=== PATIENT | female | born 1935 | race Caucasian/White ===

== ENCOUNTER 2017-02-11 15:13 | Inpatient (IN) | payer OTHER ==
[~2017-02-11] VITALS: Ht 162.6 cm; Wt 68.1 kg
--- NOTE | 2017-02-11 16:54 | DIAGNOSTIC IMAGING REPORT ---
PROCEDURE: CT HEAD WITHOUT CONTRAST INDICATION: GLF - HIT HEAD TECHNIQUE: Axial CT images were acquired through the head. Coronal and sagittal reformations were created. COMPARISON: None. FINDINGS: There are two small areas of subarachnoid hemorrhage along the left interhemispheric fissure. One in the frontal lobe and one in the parietal lobe. There is also a a small hemorrhagic contusion in the left frontal lobe. This is less than 6-7 mm in diameter. Ventricles are normal in size, shape and position. There is no mass, mass effect or midline shift. The fernandez-white matter differentiation is normal. There is no edema. The calvarium is intact. The paranasal sinuses and mastoid air cells are normally aerated. The extracranial soft tissues and orbits are normal. IMPRESSION: 1. Small amount of interhemispheric subarachnoid hemorrhage. 2. Small left frontal hemorrhagic contusion. 3. Findings discussed with Dr. Gamboa at 04:[address] scans at this facility use dose modulation, iterative reconstruction, and/or weight-based dosing when appropriate to reduce radiation dose to as low as reasonably achievable.
--- NOTE | 2017-02-11 18:56 | ED NURSING NOTES ---
Clinical Report - Nurses [facility] [address] [place] [address] 02/11/2017 15:17 Patient: PERFECTO BERNARDO TRIAGE Triage time 1510. Acuity: LEVEL 4. Chief Complaint: FALL (Pt states she was walking her dogs and they tripped her, she fell and hit her head, possible LOC, AMS.). SEPSIS SCREEN: Sepsis Screen. Negative (no infection suspected/documented). SELINA COMA SCORE: [place] Coma Scale: 15- eyes open spontaneously (4); best verbal response- oriented x 4 (5); best motor response- obeys commands (6). --15:28 Hema Bah R.N. 15:10 02/11/17. BP: 145/75 (regular adult cuff) taken on the left arm, while lying. HR: 83. RR: 16. O2 saturation: 100% on room air. Temp: 98.4 F (oral). Pain level now: 0/10. --15:28 Hema Bah R.N. Weight: 68 kg stated. Height/Length: 64 inches Per Patient. BMI: 25.8. --15:27 Hema Bah R.N. Medications Glipizide Oral (Tablet 5 mg), 2x a day. --15:22 Hema Bah R.N. MetFORMIN HCl Oral 750, at bedtime. --15:22 Hema Bah R.N. Aspirin Oral 650mg, QD. --15:23 Hema Bah R.N. AmLODIPine Besylate Oral. --15:24 Hema Bah R.N. Candesartan Cilexetil Oral (Tablet 8 mg), QD. --15:25 Hema Bah R.N. Allergies No Known Drug Allergy. --15:22 Hema Bah R.N. History Historian: EMS and patient. Arrived (Medic 46). This occurred just prior to arrival. Treatment GLUCOSE AND SYRUP WEIGHER: (IV SL by medic). Trauma activation: Pre-hospital notification of patient arrival was received. SOCIAL HX: Former smoker, end date 1998 (cigarette). Alcohol use; consumes wine by the glass. (daily). No drug use. ABUSE ASSESSMENT: No report of abuse. --15:28 Hema Bah R.N. PROBLEMS: Hypertension. Diabetes Mellitus. --15:25 Hema Bah R.N. ADDITIONAL SURGERIES: no known surgeries. Assessment GENERAL / NEURO / PSYCH: Alert. Appears in no acute distress. The patient is disoriented (minimal memory loss initially, then improved). Patient appears calm and cooperative. RESPIRATORY: Respirations not labored. Chest nontender. Breath sounds within normal limits. CVS: Capillary refill less than 2 seconds. GI / : Abdomen soft and nontender. SKIN: Mucous membranes are pink. Skin is warm and dry. --15:28 Hema Bah R.N. Interventions To treatment room. --15:28 Hema Bah R.N. NURSING PROGRESS NOTES Reassurance given. Two patient identifiers checked. Call light placed in reach. Side rails up x 2. Bed placed in lowest position. Brakes of bed on. Patient ready for evaluation- chart flagged. ( Pt's is here now and is at the bedside). --15:33 Hema Bah R.N. ( BG 135). --15:47 Hema Bah R.N. 15:10 02/11/2017 Site #1 started prior to arrival by EMS via IV in the left wrist with an 22g angiocath. Saline lock flushed with 10 mL saline. --17:28 Hema Bah R.N. 17:20 02/11/2017 Site #2 started via IV in the right wrist with an 20g angiocath, with aseptic technique and good blood return; two attempts. Saline lock flushed with 10 mL saline. --17:29 Hema Bah R.N. 17:35 02/11/2017 Started bag #1 1000 mL IV Fluids IV NS (Saline); bolus of 500 mL over 30 minute(s) via site #2 via IV pump. Allergies verified and confirmed 5 rights. IV patency established. IV site checked: no pain, redness, or swelling. IV flushed thoroughly pre- and post-medication administration. --17:35 Hema Bah R.N. 15:45 02/11/17. BP: 136/76. HR: 85. RR: 16. O2 saturation: 99% on room air. Pain level now: 0/10. --17:37 Hema Bah R.N. 16:00 02/11/17. BP: 127/64. HR: 89. RR: 16. O2 saturation: 98% on room air. Pain level now: 0/10. --17:38 Hema Bah R.N. 17:15 02/11/17. BP: 149/72. HR: 89. RR: 16. O2 saturation: 100% on room air. Pain level now: 0/10. --17:38 Hema Bah R.N. ( No change, neuros intact, ambulates without ataxia.). --18:48 Hema Bah R.N. 18:00 02/11/17. BP: 142/75. HR: 88. RR: 16. O2 saturation: 100%. Pain level now: 0/10. --18:48 Hema Bah R.N. Care transferred and report given (Sharon, ALEXIS). --19:06 Hema Bah R.N. 18:05 02/11/2017 IV Fluids IV NS Discontinued: completed. Total amount infused: 500 mL. IV patency established. IV site checked: no pain, redness, or swelling. IV flushed thoroughly. --20:29 Jose Carlos Oconnell ( pt up to bedside potty, no complications, pt denies any needs at this time). --20:44 Anel Oconnell. Patient transported to CT by stretcher. --20:44 Anel Oconnell. Patient transported by stretcher. (back to room). --20:52 Jose Carlos Oconnell ( pt given a sandwich and milk at this time. family at bedside and updated on admission status). --21:14 Jose Carlos Oconnell 21:33 02/11/17. BP: 145/61. HR: 86. RR: 16. O2 saturation: 99%. Temp: deferred. Pain level now: 0/10. --21:36 TonyaB, R.N. DISPOSITION / DISCHARGE Admitted to Acute Care. Transported via wheelchair. Report was given to a nurse via a phone call. Report included patient's care, treatment, medications, reviewed medication reconcilliation, and condition (including any recent changes or anticipated changes). All questions were answered. Report was acknowledged and care was transferred. Patient's personal items; items were transported with the patient. --21:40 Jose Carlos Oconnell Departure time: 22:29. Transported via wheelchair by nurse. --22:30 Jose Carlos Oconnell 22:30 02/11/17. BP: 138/75. HR: 86. RR: 16. O2 saturation: 99%. Temp: deferred. Pain level now: 0/10. --22:30 Jose Carlos Oconnell Locked/Released at 02/11/2017 22:30 by Jose Carlos Oconnell
--- NOTE | 2017-02-11 18:56 | ED ORDER SUMMARY ---
..... Patient: PERFECTO BERNARDO OrderSheet [facility] VisitID: [id number] [place] [address] 81y, F Registration Date/Time: 02/11/2017 ORDER SHEET Weight: 68.0 kg (stated) Allergies: No Known Drug Allergy GENERAL ORDERS: CT Head wo Cont Urgent (15:19 02/11/2017 Tayeck R.NJunior verbal order read back to Nicholas Delatorre) (Ack 15:29 Catracho) (17:28 JSmigueleck R.N.) POC Glucose (15:29 02/11/2017 Tayeck R.NJunior per protocol) (15:46 JSimbeck R.N.) CBC w Diff Urgent (16:49 02/11/2017 Nicholas Delatorre) (Ack 16:52 Catracho) (18:11 Tayeck R.N.) CMP Urgent (16:49 02/11/2017 Nicholas Delatorre) (Ack 16:52 Catracho) (18:11 Tayeck R.N.) PT with INR Urgent (16:49 02/11/2017 Nicholas Delatorre) (Ack 16:52 Catracho) (18:11 Stephany R.N.) PTT Urgent (16:49 02/11/2017 Nicholas Delatorre) (Ack 16:52 Catracho) (18:11 Tayeck R.N.) CT Head wo Cont Urgent (20:07 02/11/2017 Nicholas Delatorre) (Ack 20:20 OSnell) (21:09 OSnell) MEDICATION ORDERS: IV FLUIDS: IV NS : initial bolus 500 mL (1000 mL/hr), then none - for X1 (NOW) (16:49 02/11/2017 Nicholas Delatorre) (17:35 Stephany R.NJunior) ORDER SHEET NOTES: [Electronically signed by Sharon Fitzgerald R.N. (22:30 02/11/2017)] [Electronically signed by Vadim Gamboa Dr. (22:50 02/11/2017)] [Electronically locked/signed by Sharon Fitzgerald R.N. (22:30 02/11/2017)]
--- NOTE | 2017-02-11 18:56 | ED ORDER SUMMARY ---
..... Patient: PERFECTO BERNARDO OrderSheet [facility] VisitID: [id number] [place] [address] 81y, F Registration Date/Time: 02/11/2017 ORDER SHEET Weight: 68.0 kg (stated) Allergies: No Known Drug Allergy GENERAL ORDERS: CT Head wo Cont Urgent (15:19 02/11/2017 Tayeck R.NJunior verbal order read back to Nicholas Delatorre) (Ack 15:29 Catracho) (17:28 JSmigueleck R.N.) POC Glucose (15:29 02/11/2017 Tayeck R.NJunior per protocol) (15:46 JSimbeck R.N.) CBC w Diff Urgent (16:49 02/11/2017 Nicholas Delatorre) (Ack 16:52 Catracho) (18:11 Tayeck R.N.) CMP Urgent (16:49 02/11/2017 Nicholas Delatorre) (Ack 16:52 Catracho) (18:11 Tayeck R.N.) PT with INR Urgent (16:49 02/11/2017 Nicholas Delatorre) (Ack 16:52 Catracho) (18:11 Stephany R.N.) PTT Urgent (16:49 02/11/2017 Nicholas Delatorre) (Ack 16:52 Catracho) (18:11 Tayeck R.N.) CT Head wo Cont Urgent (20:07 02/11/2017 Nicholas Delatorre) (Ack 20:20 OSnell) (21:09 OSnell) MEDICATION ORDERS: IV FLUIDS: IV NS : initial bolus 500 mL (1000 mL/hr), then none - for X1 (NOW) (16:49 02/11/2017 Nicholas Delatorre) (17:35 Stephany R.NJunior) ORDER SHEET NOTES: [Electronically signed by Sharon Fitzgerald R.N. (22:30 02/11/2017)] [Electronically signed by Vadim Gamboa Dr. (22:50 02/11/2017)] [Electronically locked/signed by Sharon Fitzgerald R.N. (22:30 02/11/2017)]
--- NOTE | 2017-02-11 20:12 | History & Physical Report ---
Information Source Information Source: Self Reliability: Good History Chief Complaint fall with head injury History of Present Illness Patient is an 81 year old female in relatively good health that is presenting with a fall. Patient had been outside walking her dogs when she was hit in the back on her legs by the biggest dog and suffered a fall where she hit the back of her head. Patients fall was witnessed by her who came to her aid, he found he unconcious on the floor and immediately went to go back to the house to call 911. When he was on the phone with EMS the patient regained conciousness and came back into the house. The urged the patient to lie on the couch to wait for ems. Patient complied and complained of some pain. Patient when questioned did not recall any of this and only recalls EMS arriving to take her to the hospital. Patient did not have any external bleeding or focal neurological deficits except for amnesia. Patient did not have any problems except for slight pain since the fall. Upon arriving to the ER the patient was found to have multiple areas of crainal bleed, 3 in total with the largest measuring 6 mm. Patient was unable to be transferred to any facility due to unavailability of any beds. Patient had a repeat CT scan which did not show any increase in the bleed size. Patient is otherwise hemodynamically stable. Patient History 1. Subarachnoid bleed 2. Fall 3. Hypertension 4. 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 She lives alone with her and manages all her adls independetly. Patient has a remote smoking history with a total of 50 pack years, however she quit in 1999. Patient additionally drinks a glass of wine with dinner every day and does not use any illicit substances. Family History Family history was reviewed; no changes noted. Medications and Allergies Medications Home Medications Estradiol .5 mg daily glipizide metformin 500 bid candesartan 8 mg Current Medications Sig/Hieu Start time Last Medication Dose Route Stop Time Status Admin Pantoprazole Sodium 40 MG DAILY@0600 05 0600 AC IV Acetaminophen See Dose Q6H PRN 02/11 2300 AC 02/11 Insts (1) PO 2353 Ondansetron HCl See Dose Q4H PRN 02/11 2300 AC Insts (2) IV Insulin Human Lispro See Dose ACHS 02/11 2100 AC 02/11 Insts (3) SC 2359 Losartan Potassium 25 MG DAILY 05/19 2007 AC 02/11 PO 2352 Morphine Sulfate 1 MG Q4H PRN 02/12 2000 AC IV Dose Instructions: (1)Acetaminophen: 500 - 1000 MG (2)Ondansetron HCl: 4 - 8 MG (3)Insulin Human Lispro: LOW DOSE: ACCUCHECK AND SLIDING SCALE >>To change sliding scale DISCONTINUE this order and enter a NEW order. Thanks< Allergies Coded Allergies: NKA (02/11/17) Review of Systems Constitutional Denies: Fever, Chills, Sweats, Weakness, Malaise, Other. Eyes Denies: Pain, Vision Change, Conjunctival Inflammation, Eyelid Inflammation, Redness, Other. ENT Denies: Ear Pain, Ear Discharge, Nose Pain, Nasal Discharge, Nasal Congestion, Mouth Pain, Mouth Swelling, Throat Pain, Throat Swelling, Other. Respiratory Denies: Cough, Dry, SOB w/exertion, Wheezing, Hemoptysis, Pleuritic Pain, Sputum , Other. Cardiovascular Denies: Chest Pain, Palpitations, Orthopnea, PND, Edema, Light-headedness, Other. Gastrointestinal Denies: Nausea, Vomiting, Abdominal Pain, Diarrhea, Constipation, Melena, Hematochezia, Other. Genitourinary Denies: Dysuria, Frequency, Incontinence, Hematuria, Retention, Other. Musculoskeletal Denies: Neck Pain, Shoulder Pain, Arm Pain, Back Pain, Hand Pain, Leg Pain, Foot Pain, Other. Skin Denies: Rash, Lesions, Jaundice, Bruising, Other. Neurological Denies: Weakness, Numbness, Incoordination, Change in speech, Confusion, Seizures, Other. Physical Exam Vital Signs / I&Os Vital Signs Date Time Temp Pulse Resp B/P Pulse O2 O2 Flow FiO2 Ox Delivery Rate 02/12 0512 79 14 123/64 97 02/12 0418 84 17 133/70 98 02/12 0314 78 15 125/56 96 Room Air 02/12 0212 98.2 79 15 124/64 96 Room Air 02/12 0118 85 15 119/67 95 Room Air 02/12 0015 85 14 127/57 97 Room Air 02/11 2311 87 16 120/59 98 02/11 2254 98.2 87 16 130/70 98 Room Air 02/11 2200 Room Air I&O 02/11 0800 02/11 1600 02/12 0000 Intake Total Output Total Balance General Appearance Alert, Oriented X3, No acute distress HEENT PERRLA, Moist mucous membranes, - slight contusion with swelling, no timothy bleeding however Lungs Clear to auscultation, Normal air movement Neck Supple, No JVD, No masses Cardiovascular Regular rate and rhythm, Normal S1 and S2, No murmurs, gallops, rubs Abdomen Soft, No tenderness Extremities No cyanosis, No clubbing, No edema, No tenderness Skin No Breakdown, No Significant Lesions Neurological Normal gait, Normal speech, Normal tone, Sensation intact, Cranial nerves intact, Strength 5/5 x4 ext's, No lateralizing signs Psych/Mental Status Mood normal LAB Results Laboratory Tests 02/11 1730 Chemistry Plasma Sodium (136 - 145 mmol/L) 142 Plasma Potassium (3.5 - 5.1 mmol/L) 4.9 Plasma Chloride (98 - 107 mmol/L) 105 CO2 (Enzymatic) (21 - 32 mmol/L) 28 BUN (7 - 18 mg/dL) 15 Creatinine (0.6 - 1.3 mg/dL) 0.7 Est GFR ( Amer) (mL/min) >60 Est GFR (Non-Af Amer) (mL/min) >60 Glucose (70 - 110 mg/dL) 116 Plasma Calcium (8.5 - 10.1 mg/dL) 9.2 Total Bilirubin (0.0 - 1.0 mg/dL) 0.4 AST (15 - 37 U/L) 21 ALT (12 - 78 U/L) 25 Alkaline Phosphatase (46 - 116 U/L) 64 Total Protein (6.4 - 8.2 g/dL) 7.5 Albumin (3.3 - 5.0 g/dL) 3.9 Coagulation INR (0.8 - 1.2) 1.0 APTT (24 - 34 SECONDS) 25 Hematology WBC (4.5 - 11.5 K/uL) 6.2 RBC (4.00 - 5.20 M/uL) 4.11 Hgb (12.0 - 16.0 gm/dL) 12.8 Hct (36.0 - 46.0 %) 38.3 MCV (80 - 100 fL) 93 MCH (26 - 34 pg) 31 RDW (11.6 - 14.8 %) 13.0 Neut % (Auto) (50 - 75 %) 66.7 Lymph % (Auto) (25 - 40 %) 21.6 [place] % (Auto) (3 - 14 %) 9.3 Eos % (Auto) (0 - 4 %) 2.3 Baso % (Auto) (0 - 2 %) 0.1 Plt Count, EDTA (150 - 400 K/uL) 232 PUBS MCHC (31 - 37 g/dL) 33 Assessment and Plan Problem List 1. Fall Plan - mechanical fall - no syncope or etiology behind fall - no further work up indicated at the moment 2. Subarachnoid bleed Plan - pt has three areas of bleed in the brain - the largest area measuring 6 mm - repeat CT scan shows stable presence of bleeds - will repeat another CT and if stable patient can be discharged - will monitor pt in ccu - frequent neuro checks, q2 hours 3. Hypertension Plan - established history - will c/w losartan to replace candesartan 8 mg 4. Diabetes mellitus Plan - established history - pts blood sugars have been appropriate - will hold metformin and glipizide and monitor patient on sliding scale coverage - carb consistent diet
[2017-02-11] MEDS ORDERED: GLIPIZIDE ER5 MG PO (20:49)
[2017-02-11] MEDS ORDERED: BAYER ASPIRIN325 M1 PO (20:50)
[2017-02-11] MEDS ORDERED: METFORMIN HCL500 MG PO (20:50)
[2017-02-11] MEDS ORDERED: AMLODIPINE BES2.5 MG PO (20:51)
[2017-02-11] MEDS ORDERED: ATACAND8 MG PO (20:51)
--- NOTE | 2017-02-11 21:08 | DIAGNOSTIC IMAGING REPORT ---
PROCEDURE: CT HEAD WITHOUT CONTRAST INDICATION: TRAUMA/INJURY TECHNIQUE: Noncontrast axial images with sagittal and coronal reformations. COMPARISON: None. FINDINGS: Mild cortical atrophy and normal ventricular system. There are two small areas of subarachnoid hemorrhage along the left interhemispheric fissure in the frontal and parietal lobe, unchanged. There is also a stable left frontal lobe contusion there is no mass effect or midline shift. Visualized mastoids and sinuses are clear. IMPRESSION: 1. Stable small interhemispheric left subarachnoid hemorrhage 2. Stable left frontal lobe hemorrhagic contusion 3. Findings discussed with Dr. Gamboa at 09:06 p.m.[facility] Standard Time
--- NOTE | 2017-02-11 21:08 | DIAGNOSTIC IMAGING REPORT ---
PROCEDURE: CT HEAD WITHOUT CONTRAST INDICATION: TRAUMA/INJURY TECHNIQUE: Noncontrast axial images with sagittal and coronal reformations. COMPARISON: None. FINDINGS: Mild cortical atrophy and normal ventricular system. There are two small areas of subarachnoid hemorrhage along the left interhemispheric fissure in the frontal and parietal lobe, unchanged. There is also a stable left frontal lobe contusion there is no mass effect or midline shift. Visualized mastoids and sinuses are clear. IMPRESSION: 1. Stable small interhemispheric left subarachnoid hemorrhage 2. Stable left frontal lobe hemorrhagic contusion 3. Findings discussed with Dr. Gamboa at 09:06 p.m.[facility] Standard Time
--- NOTE | 2017-02-11 22:50 | ED CLINICAL REPORT ---
Clinical Report - Physicians/Mid Levels [facility] [address] [place] [address] 02/11/2017 15:17 Patient: PERFECTO BERNARDO Time Seen: 1509. Arrived- By ambulance. Historian- patient. HISTORY OF PRESENT ILLNESS Location of injuries- (back of the head). Chief Complaint: INJURY TO HEAD. The injury occurred today. Occurred at home. ( tripped up by the large dogs she has while on a walk). Fell. The patient sustained a blow to the head and was dazed. No neck pain or loss of consciousness. (amnesia but no other neurologic concerns. no weakness. no tingling or numbness.). REVIEW OF SYSTEMS No numbness, hearing loss, nausea, chest pain or depression. No weakness, loss of vision, vomiting, difficulty breathing or laceration. All systems otherwise negative, except as recorded above. PAST HISTORY See nurses notes. Tetanus immunization status is up-to-date. Additional Surgeries: no known surgeries. Medications: Candesartan Cilexetil Oral (Tablet 8 mg), QD. AmLODIPine Besylate Oral. Aspirin Oral 650mg, QD. MetFORMIN HCl Oral 750, at bedtime. Glipizide Oral (Tablet 5 mg), 2x a day. Allergies: No Known Drug Allergy. ADDITIONAL NOTES The nursing notes have been reviewed. PHYSICAL EXAM Vital Signs: 02/11/2017 15:45 BP: 136/76. HR: 85. RR: 16. O2 saturation: 99%. Pain level now: 0/10. 02/11/2017 15:10 BP: 145/75. HR: 83. RR: 16. O2 saturation: 100%. Temp: 98.4 F. Pain level now: 0/10. Blood pressure normal. Oxygen saturation normal. Appearance: Alert. No acute distress. Head: Head non-tender. No swelling of head. No Mckeon's sign or raccoon eyes. Eyes: Pupils equal, round and reactive to light. Pupillary exam: Right pupil 3mm, round and reactive to light directly and consensually and with accommodation. Left pupil: 3mm, round and reactive to light directly and consensually and with accommodation. EOM intact. ENT: No dental injury. No hemotympanum. Pharynx normal. No malocclusion. Neck: No decreased ROM or muscle spasm in the neck. No pain with movement of head/neck. Painless ROM. Neck non-tender. No vertebral tenderness. CVS: Heart sounds normal. Pulses normal. Respiratory: Breath sounds normal. Chest nontender. Abdomen: Soft and nontender. No organomegaly. Back: No tenderness. ROM normal. Skin: Skin intact. Skin warm and dry. Normal skin color. Normal skin turgor. Extremities: Normal inspection. Pelvis stable. Extremities atraumatic. No lower extremity edema. Neuro: Devyn Coma Scale: 15- eyes open spontaneously (4); best verbal response- oriented x 3 (5); best motor response- obeys commands (6). Oriented X 3. Mood/affect normal. Speech normal. No motor deficit. No sensory deficit. LABS, X-RAYS, AND EKG CT Head: (PROCEDURE: CT HEAD WITHOUT CONTRAST INDICATION: GLF - HIT HEAD TECHNIQUE: Axial CT images were acquired through the head. Coronal and sagittal reformations were created. COMPARISON: None. FINDINGS: There are two small areas of subarachnoid hemorrhage along the left interhemispheric fissure. One in the frontal lobe and one in the parietal lobe. There is also a a small hemorrhagic contusion in the left frontal lobe. This is less than 6-7 mm in diameter. Ventricles are normal in size, shape and position. There is no mass, mass effect or midline shift. The fernandez-white matter differentiation is normal. There is no edema. The calvarium is intact. The paranasal sinuses and mastoid air cells are normally aerated. The extracranial soft tissues and orbits are normal. IMPRESSION: 1. Small amount of interhemispheric subarachnoid hemorrhage. 2. Small left frontal hemorrhagic contusion.). Laboratory Tests: CBC w Diff: (MARIA VICTORIA: 02/11/2017 17:30) ( MsgRcvd 02/11/2017 17:50) Final results Test Result Flag Units (Reference) WHITE BLOOD COUNT 6.2 K/uL (4.5-11.5) RED BLOOD COUNT 4.11 M/uL (4.00-5.20) HEMOGLOBIN 12.8 gm/dL (12.0-16.0) HEMATOCRIT 38.3 % (36.0-46.0) MEAN CELL VOLUME 93 fL (80-100) MEAN CORPUSCULAR HGB 31 pg (26-34) MEAN CORPUSCULAR HGB CONC 33 g/dL (31-37) RED CELL DISTRIBUTION WIDTH 13.0 % (11.6-14.8) PLATELET COUNT 232 K/uL (150-400) NEUTROPHIL % 66.7 % (50-75) LYMPH % 21.6 L % (25-40) MONO % 9.3 % (3-14) EOSINOPHIL % 2.3 % (0-4) BASOPHIL % 0.1 % (0-2) PT with INR: (MARIA VICTORIA: 02/11/2017 17:30) ( [facility] 02/11/2017 18:27) Final results Test Result Flag Units (Reference) INR 1.0 (0.8-1.2) Low Intensity Therapy: INR 1.5-2.0 PT range 18.5-23.1Mod.Intensity Therapy: INR 2.0-3.0 PT range 23.1-31.5High Intensity Therapy: INR 2.5-3.5 PT range 27.4-35.5High Intensity Therapy 2: INR 3.0-4.0 PT range 31.5-39.3 APTT 25 SECONDS (24-34) CMP: (MARIA VICTORIA: 02/11/2017 17:30) ( [facility] 02/11/2017 18:15) Final results Test Result Flag Units (Reference) GLUCOSE 116 H mg/dL (70-110) BUN 15 mg/dL (7-18) CREATININE 0.7 mg/dL (0.6-1.3) Estimated GFR >60 mL/min Estimated GFR- >60 mL/min Note: Persistent reduction over 3 months in eGFR<60 mL/min/1.73 m2 defines CKD. Patients with eGFR values>=60 mL/min/1.73 m2 may also have CKD if evidence ofpersistent proteinuria. Additional information may be foundat [email or web address]. SODIUM 142 mmol/L (136-145) POTASSIUM 4.9 mmol/L (3.5-5.1) CHLORIDE 105 mmol/L (98-107) CARBON DIOXIDE 28 mmol/L (21-32) CALCIUM 9.2 mg/dL (8.5-10.1) TOTAL PROTEIN 7.5 g/dL (6.4-8.2) ALBUMIN 3.9 g/dL (3.3-5.0) BILIRUBIN, TOTAL 0.4 mg/dL (0.0-1.0) ALKALINE PHOSPHATASE 64 U/L (46-116) AST (SGOT) 21 U/L (15-37) ALT (SGPT) 25 U/L (12-78) . Note - Tests: (PROCEDURE: CT HEAD WITHOUT CONTRAST INDICATION: TRAUMA/INJURY TECHNIQUE: Noncontrast axial images with sagittal and coronal reformations. COMPARISON: None. FINDINGS: Mild cortical atrophy and normal ventricular system. There are two small areas of subarachnoid hemorrhage along the left interhemispheric fissure in the frontal and parietal lobe, unchanged. There is also a stable left frontal lobe contusion there is no mass effect or midline shift. Visualized mastoids and sinuses are clear. IMPRESSION: 1. Stable small interhemispheric left subarachnoid hemorrhage 2. Stable left frontal lobe hemorrhagic contusion). PROGRESS AND PROCEDURES Course of Care: the patient is a pleasant 81-year-old female with past medical history significant for hypertension presented for evaluation of ground level fall. Patient is noted to be an aspirin daily. Patient is a nonfocal neurological examination. Based on patient's age, CT scan will be ordered. Patient is agreeable to the treatment plan. No focal neurological deficits noted. Patient is pleasant and neuro intact. Work up was remarkable for the findings above. Consult was placed to the trauma service at [facility]. We are currently awaiting the recommendations and call. Laboratory studies were also added to the patient's evaluation given the patient's head bleed. No acute abnormalities noted otherwise. Patient continues to be neuro intact. Vital signs are noted. Unremarkable. Patient with mild hypertension however do not feel that patient requires significant lowering of her blood pressure at this time. No concern at this time for acute herniation. Was able to speak to the [facility] trauma Center. Because the patient's symptoms, would like to have the patient transferred however they do not have any beds at this time. Stated that they're boarding over 30 patient's. Because of the patient's symptoms and thefact that she is neuro intact, had Requested the patient be admitted here and monitored. Recommended a follow-up CT scan for any acute changes. Because of this, the patient was monitored here in the emergency department and a CT scan will be obtained at 8:30 PM. If there is any acute abnormalities, we will consult the trauma service again. Had spoken to the hospitalist who is accepting the patient if the CT scan is noted to be unremarkable. The reason the patient is staying here is because of no beds available over at [facility]. The patient does need to be admitted however for monitoring. Patient is not a good outpatient candidate given the intracranial bleeding. Discussed with the patient's family as well as spouse with the patient's permission the workup as well as diagnosis, and plan of care. repeat CT scan does not show any acute changes. All questions have been answered. The patient is agreeable to the treatment plan. Prior to patient's a pressure in the emergency department she was noted to be in no acute distress. Patient is in good spirits. Patient has been declining pain medication offered throughout her stay here in the emergency department and continues to do so. appreciate recommendations from neurosurgery In the patient's care. Critical care performed (60 minutes). Time is exclusive of separately billable procedures. Time includes: direct patient care, patient reassessment, coordination of patient care, review of patient's medical records, medical consultation, family consultation regarding treatment decisions and documentation of patient care. Consult obtained. Neurosurgery. Disposition: Observation in Acute Care. (Electronically signed by Vadim Gamboa Dr. 02/11/2017 22:50)
--- NOTE | 2017-02-11 22:50 | ED MED RECONCILIATION SUMMARY ---
Patient: PERFECTO BERNARDO Medication Reconciliation Report [facility] VisitID: [id number] [address] [place] [address] 81y, F Registration Date/Time: 02/11/2017 Weight: 68.0 kg Height/Length: 64 in. BMI: 25.8 ALLERGIES: No Known Drug Allergy The patient's Home Medications are listed below: THE FOLLOWING MEDICATIONS NEED TO BE RECONCILED: AmLODIPine Besylate Oral Aspirin Oral 650mg, QD Candesartan Cilexetil Oral (8 mg), QD Glipizide Oral (5 mg), 2x a day MetFORMIN HCl Oral 750, at bedtime The source(s) of the original Home Medication information: Not obtained. The following Medications were given to the patient in the Emergency Department: IV NS IV Fluids bolus 500 mL over 30 minute(s), administered: 02/11/2017 5:35:00 PM The following Medications were prescribed to the patient: None.
--- NOTE | 2017-02-11 22:50 | ED MED RECONCILIATION SUMMARY ---
Patient: PERFECTO BERNARDO Medication Reconciliation Report [facility] VisitID: [id number] [address] [place] [address] 81y, F Registration Date/Time: 02/11/2017 Weight: 68.0 kg Height/Length: 64 in. BMI: 25.8 ALLERGIES: No Known Drug Allergy The patient's Home Medications are listed below: THE FOLLOWING MEDICATIONS NEED TO BE RECONCILED: AmLODIPine Besylate Oral Aspirin Oral 650mg, QD Candesartan Cilexetil Oral (8 mg), QD Glipizide Oral (5 mg), 2x a day MetFORMIN HCl Oral 750, at bedtime The source(s) of the original Home Medication information: Not obtained. The following Medications were given to the patient in the Emergency Department: IV NS IV Fluids bolus 500 mL over 30 minute(s), administered: 02/11/2017 5:35:00 PM The following Medications were prescribed to the patient: None.
--- NOTE | 2017-02-11 22:50 | ED MAR SUMMARY ---
..... Medication Administration Record [facility] [address] [place] [address] Patient: PERFECTO BERNARDO Visit ID: [id number] 81y, F Weight: 68.0 kg Height/Length: 64 in BMI: 25.8 ALLERGIES: No Known Drug Allergy Start 17:35 02/11/2017 Hema Bah R.N., Stop 18:05 02/11/2017 Jose Carlos Oconnell Medication Administered: IV NS (SALINE), Dose: IV Fluids, Bolus: 500 mL over 30 minute(s), Dispensed: 1000 mL bag, Site: #2 right wrist. Medication Ordered: IV NS : initial bolus 500 mL (1000 mL/hr), then none - for X1 (NOW).
--- NOTE | 2017-02-11 22:50 | ED MAR SUMMARY ---
..... Medication Administration Record [facility] [address] [place] [address] Patient: PERFECTO BERNARDO Visit ID: [id number] 81y, F Weight: 68.0 kg Height/Length: 64 in BMI: 25.8 ALLERGIES: No Known Drug Allergy Start 17:35 02/11/2017 Hema Bah R.N., Stop 18:05 02/11/2017 Jose Carlos Oconnell Medication Administered: IV NS (SALINE), Dose: IV Fluids, Bolus: 500 mL over 30 minute(s), Dispensed: 1000 mL bag, Site: #2 right wrist. Medication Ordered: IV NS : initial bolus 500 mL (1000 mL/hr), then none - for X1 (NOW).
[2017-02-11 22:54] VITALS: BP 130/70
[2017-02-11 23:11] VITALS: BP 120/59
[2017-02-12] VITALS (15 sets, daily range): BP systolic 112–149; BP diastolic 43–74
--- NOTE | 2017-02-12 08:29 | Progress Note ---
Subjective General Patient is an 81 year old female in relatively good health that is presenting with a fall. Patient had been outside walking her dogs when she was hit in the back on her legs by the biggest dog and suffered a fall where she hit the back of her head. Patients fall was witnessed by her who came to her aid, he found he unconcious on the floor and immediately went to go back to the house to call 911. When he was on the phone with EMS the patient regained conciousness and came back into the house. The urged the patient to lie on the couch to wait for ems. Patient complied and complained of some pain. Patient when questioned did not recall any of this and only recalls EMS arriving to take her to the hospital. Patient did not have any external bleeding or focal neurological deficits except for amnesia. Patient did not have any problems except for slight pain since the fall. Upon arriving to the ER the patient was found to have multiple areas of crainal bleed, 3 in total with the largest measuring 6 mm. Patient was unable to be transferred to any facility due to unavailability of any beds. Patient had a repeat CT scan which did not show any increase in the bleed size. Patient is otherwise hemodynamically stabl Heache is much better now only 2/10, no nausea or vomiting no tingilin numbness, no blurred vision, no localized weakness no slurred speech, no fever or chills Review of systems: GI: Negative for nausea or vomiting Neurology: Negative for tingling or numbness no pleural effusion no localized weaknessdue to speech Constitutional: No fever no chills Physical Exam Vital Signs / I&Os Vital Signs Date Time Temp Pulse Resp B/P Pulse O2 O2 Flow FiO2 Ox Delivery Rate 02/12 0820 90 16 146/71 97 02/12 0719 77 14 132/68 97 Room Air 02/12 0703 98.2 05 0600 79 15 149/69 98 Room Air 02/12 0512 79 14 123/64 97 02/12 0418 84 17 133/70 98 / 0314 78 15 125/56 96 Room Air 02/12 0212 98.2 79 15 124/64 96 Room Air 02/12 0118 85 15 119/67 95 Room Air 02/12 0015 85 14 127/57 97 Room Air 02/11 2311 87 16 120/59 98 02/11 2254 98.2 87 16 130/70 98 Room Air 02/11 2200 Room Air I&O 02/12 0000 02/11 1600 02/11 0800 Intake Total Output Total Balance General Appearance No acute distress Lungs Clear to auscultation Neck Supple Cardiovascular Regular rate and rhythm, Normal S1 and S2, No murmurs, gallops, rubs Abdomen Normal bowel sounds, Soft, No tenderness Extremities No edema Skin No Rashes Neurological Normal speech, Normal tone, Reflexes 2+ and equal, Cranial nerves intact, Strength 5/5 x4 ext's Psych/Mental Status Mental status normal LAB Results Laboratory Tests 02/12 02/11 0530 1730 Chemistry Plasma Sodium (136 - 145 mmol/L) 142 142 Plasma Potassium (3.5 - 5.1 mmol/L) 3.9 4.9 Plasma Chloride (98 - 107 mmol/L) 106 105 CO2 (Enzymatic) (21 - 32 mmol/L) 29 28 BUN (7 - 18 mg/dL) 14 15 Creatinine (0.6 - 1.3 mg/dL) 0.6 0.7 Est GFR ( Amer) (mL/min) >60 >60 Est GFR (Non-Af Amer) (mL/min) >60 >60 Glucose (70 - 110 mg/dL) 133 116 Plasma Calcium (8.5 - 10.1 mg/dL) 8.4 9.2 Plasma Magnesium (1.8 - 2.4 mg/dL) 2.0 Total Bilirubin (0.0 - 1.0 mg/dL) 0.3 0.4 AST (15 - 37 U/L) 17 21 ALT (12 - 78 U/L) 21 25 Alkaline Phosphatase (46 - 116 U/L) 58 64 Total Protein (6.4 - 8.2 g/dL) 6.6 7.5 Albumin (3.3 - 5.0 g/dL) 3.3 3.9 Coagulation INR (0.8 - 1.2) 1.0 APTT (24 - 34 SECONDS) 25 Hematology WBC (4.5 - 11.5 K/uL) 6.9 6.2 RBC (4.00 - 5.20 M/uL) 3.94 4.11 Hgb (12.0 - 16.0 gm/dL) 12.4 12.8 Hct (36.0 - 46.0 %) 36.8 38.3 MCV (80 - 100 fL) 94 93 MCH (26 - 34 pg) 32 31 RDW (11.6 - 14.8 %) 13.0 13.0 Neut % (Auto) (50 - 75 %) 57.4 66.7 Lymph % (Auto) (25 - 40 %) 29.4 21.6 Lenoir % (Auto) (3 - 14 %) 9.4 9.3 Eos % (Auto) (0 - 4 %) 3.4 2.3 Baso % (Auto) (0 - 2 %) 0.4 0.1 Plt Count, EDTA (150 - 400 K/uL) 210 232 PUBS MCHC (31 - 37 g/dL) 34 33 Microbiology Date/Time Procedure - Status Source Growth 02/12 0700 MRSA Screen - COLB NASAL Assessment and Plan Problem List 1. Subarachnoid bleed Plan will repeat CT of head this PM if stable discharge home 2. Fall Plan on precuation 3. Hypertension Plan controlled continue current meds 4. Diabetes mellitus Plan controlled continue current meds
--- NOTE | 2017-02-12 16:52 | DIAGNOSTIC IMAGING REPORT ---
PROCEDURE: CT HEAD WITHOUT CONTRAST INDICATION: brain bleed TECHNIQUE: Axial CT images were acquired through the head. Coronal and sagittal reformations were created. COMPARISON: 02/11/2017 and 20:47 hours and 02/11/2017 at 16:25 hours FINDINGS: Minor cerebral cortical atrophy. Minor hypodensity in the periventricular and subcortical white matter. Subarachnoid foci of hemorrhage along the left paramedian frontal and parietal regions has decreased in slight mass effect and size compared to the original scan and decreased slightly in hyperdensity compared to most recent prior scan. Left frontal cortical contusion is much more ill-defined and less dense, and more inconspicuous. No new hemorrhage. The ventricles are stable. No new mass effect or edema. Soft tissues, sinuses, and calvarium remain normal. IMPRESSION: 1. Decreasing conspicuity of left interhemispheric subarachnoid and left frontal cortical hemorrhage. 2. No new hemorrhage, edema or mass effect. 3. Findings discussed with Dr. Leblanc at [address] scans at this facility use dose modulation, iterative reconstruction, and/or weight-based dosing when appropriate to reduce radiation dose to as low as reasonably achievable.
--- NOTE | 2017-02-13 01:22 | DISCHARGE SUMMARY ---
ADMIT DATE: 02/11/2017 DISCHARGE DATE: 02/12/2017 DISCHARGE DIAGNOSES: 1. Subarachnoid bleed. 2. Status post fall. 3. Hypertension. 4. Diabetes BRIEF HISTORY: This is an 81-year-old white female who presented to the emergency department with a fall. She was walking with her dogs, hit in the back of her legs with the dog and lost her balance and suffered a fall. She fell backward and hit her head, which was witnessed by the . The patient was unconscious, so 911 was called and the patient was transferred to the emergency department. The patient had some short-term amnesia after waking up in the hospital but did not have any external bleed. No neurological finding, other than amnesia. A CT of the head showed the patient has a small subarachnoid hemorrhage in 2 places and [facility] was contacted by the emergency department and discussion was that the patient be admitted in our hospital and will followup closely and monitor with neural checks and also follow up with a CT scan. HOSPITAL COURSE: The patient had a second CT scan of the head done yesterday, which showed a subarachnoid hemorrhage bleed is stable. The patient stayed stable during the hospital course and did not have any neurological findings and also did not have any symptoms, like headaches or blurred vision or tingling or numbness, nausea, vomiting, and vitals stable. We did do a third CT scan this afternoon and I just got a call from Dr. Wood in radiology that said actually the subarachnoid hemorrhage is improved significantly compared to the previous one. DISCHARGE INSTRUCTIONS/MEDICATIONS: The patient is going to be discharged home. I gave instructions to the patient that if she develops any headaches or nausea or vomiting, blurred vision, tingling, numbness, localized weakness, facial droop or change in level of consciousness to report to the emergency department immediately. The patient also needs to follow up with her primary care physician within the 5 days and we will continue outpatient medications, which would be pantoprazole 40 mg once a day, Losartan 25 mg daily, estradiol 5.5 mg daily, glipizide dosage is not known, Metformin 500 mg twice a day.
== END 2017-02-12 17:00 | disposition home or self-care (01) | DRG 87 ==
LOC: ED SRH 15:13 → TRANS SRH 21:15 → CC SRH 22:50
PROVIDERS: ADMIT Internal Medicine
DX: S06.6X0A Traumatic subarachnoid hemorrhage without loss of consciousness, initial encounter (principal); W01.0XXA Fall on same level from slipping, tripping and stumbling without subsequent striking against object, initial encounter; Y93.K1 Activity, walking an animal; Y92.410 Unspecified street and highway as the place of occurrence of the external cause; Y99.8 Other external cause status; I10 Essential (primary) hypertension; E11.9 Type 2 diabetes mellitus without complications; Z79.84 Long term (current) use of oral hypoglycemic drugs
CPT/HCPCS: 85241; 90074; 90098; 90100; 92132; 92720; 94001; 94060; 95059